=== PATIENT | female | born 1990 | race Caucasian/White ===

== ENCOUNTER 2025-02-25 12:49 | Outpatient (CLI) | payer BC, SELFPAY ==
--- NOTE | 2025-02-25 13:00 | CRLHL7_ITS ---
For Patients: As a result of the Cures Act, medical imaging exams and procedure reports are released immediately into your electronic medical record. You may view this report before your referring provider. If you have questions, please contact your health care provider. OB ULTRASOUND INDICATION: Dating. TECHNIQUE: Real time purdy scale imaging of the fetus was performed. Transabdominal imaging performed. (Transvaginal declined.) LMP: 12/31/2024. MAXIMILIANO by LMP: 10/07/2025. GA: 8 w, 0 d. Previous US: No. CRL: 1.6 cm. 8 w 0 d. MAXIMILIANO: 10/07/2025. FHR: 176 BPM. Gestational sac: 2.6 cm. Appears within normal limits. Yolk sac: 2.8 mm. Appears within normal limits. Right ovary: Within normal limits. 3.6 x 2.4 x 2.8 cm. CL. Left ovary: Within normal limits. 3.2 x 1.2 x 1.3 cm. IMPRESSION: 1. Single living anterior measuring 8 weeks 0 days with sonographic due date 10/07/2025. 2. Small subchorionic hemorrhage measures 11 x 8 x 8 mm. Aaron Lizarraga M.D. Diagnostic Radiologist [email or web address] LYSSA/Dictated by: Aaron Lizarraga MD @ 02/25/2025 6:42:00 PM (Electronically Signed)
== END 2025-02-25 12:50 | disposition home or self-care (01) ==
LOC: US 12:52
PROVIDERS: Visit Provider Midwife
DX: Z34.91 Encounter for supervision of normal pregnancy, unspecified, first trimester (principal); O20.9 Hemorrhage in early pregnancy, unspecified; Z3A.08 8 weeks gestation of pregnancy
CPT/HCPCS: 76801; 83021; 86592; 86703; 86704; 86706; 86762; 86787; 86803; 86850; 86900; 86901; 87086; 87340

== ENCOUNTER 2025-05-23 12:51 | Outpatient (CLI) | payer BC, SELFPAY ==
--- NOTE | 2025-05-23 13:00 | CRLHL7_ITS ---
For Patients: As a result of the Century Cures Act, medical imaging exams and procedure reports are released immediately into your electronic medical record. You may view this report before your referring provider. If you have questions, please contact your health care provider. INDICATION: scan. TECHNIQUE: Ultrasound pelvis transabdominal and transvaginal for better assessment or to better visualize the endometrium. Real-time sonographic images with spectral and color Doppler imaging of the ovaries were obtained. COMPARISON: 02/25/2025. FINDINGS: Sonographic imaging demonstrates a single living intrauterine gestation. Fetus demonstrates a regular cardiac rate of 130 beats per minute. Fetus has a breech orientation. The placenta lies anterior without evidence of placenta previa. Amniotic fluid appears within normal limits, with single deepest pocket of 4.1 cm. Closed cervical length is 4.7 cm. The composite ultrasound gestational age is calculated at 20 weeks 3 days with an estimated sonographic due date of 10/07/2025. The estimated weight is 353 grams which lies at the 45 %. The following biometric measurements were obtained: Biparietal diameter: 4.5cm corresponding to 19 weeks 3 days. Head circumference: 17.8cm corresponding to 20 weeks 2 days. Abdominal circumference: 15.3cm corresponding to 20 weeks 4 days. Femur length: 3.3cm corresponding to 20 weeks 3 days. On anatomic survey, there is a normal appearance of the cerebral ventricles, cisterna magna and cerebellum. No gross facial abnormality evident. Cervical, thoracic and lumbar spine as imaged appears normal. Normal-appearing four-chamber heart with normal appearing right and left ventricular outflow tracts. diaphragm, stomach, kidneys and bladder appear normal. Normal-appearing three-vessel cord and cord insertion site. Visualized four extremities appear normal. IMPRESSION: 1. Single living intrauterine with estimated age of 20 weeks 3 days. 2. No abnormality evident on anatomic survey. Dictated by Jaiden Alejandro MD @ 05/23/2025 3:47:02 PM Dictated by: Jaiden Alejandro MD @ 05/23/2025 15:47:14 (Electronically Signed)
== END 2025-05-23 12:52 | disposition home or self-care (01) ==
LOC: US 12:53
PROVIDERS: Visit Provider Advanced Practice Midwife
DX: Z34.92 Encounter for supervision of normal pregnancy, unspecified, second trimester (principal); Z3A.20 20 weeks gestation of pregnancy
CPT/HCPCS: 76805

== ENCOUNTER 2025-06-24 13:24 | Emergency (ER) | payer BC, SELFPAY ==
--- OUTSIDE RECORDS SUMMARY | 2025-06-24 13:27 | XMS_ITS | Data Portability ---
Author Organization [place] - .[facility], [facility] [place] Address [address] [place] [id number] Assessment No assessment recorded. Plan of Treatment Reminders Order DateSubmit DateProviderLast Modified ByOrganization DetailsLast Modified TimeDetailsAppointmentsNone recorded.LabO&P (ova & parasites), stool06/04/2025 06/04/20255655zwktjwtjy788[facility], [address] [place] [address], [address], [address]/08/2024 19:49:20unlisted lab - stool culture (salm, shig, campy, styl) - [facility]316[facility], [address] [place] [address], [address], 0[address]/08/2024 19:49:20C diff toxin A+B, qualitative, stooljmitchell316Cmd [facility], [address] [place] [address], [address], 8008/08/2024 19:49:21ReferralNone recorded.ProceduresNone recorded.SurgeriesNone recorded.ImagingNone recorded. Medication OrdersNone recorded. Patient TargetsNo targets recorded. Patient Instructions Encounter Date Encounter Id Patient Instructions Last Modified By Organization Details Last Modified Time 06/04/2025 [id number] A healthy lifestyle: care instructions [email or web address] Not available 06/05/2025 20:59:56 Thank you for visiting [facility]. We may be calling you to review your lab results or schedule a follow up appointment. The call will be through an automated system which asks you to pressa oconnell to speak with one of our agents. Please be on the lookout for this call and listen to the message in its entirety. You may also view your lab results using the [employer] ebony, available in the Ebony Store and Google Play. First-time ebony users will need to create an account; please note you???ll need to select a login and password for the ebony versus just using your patient portal login. Your lab results will be posted to the [employer] ebony as soon as they???re available. Need a note to excuse you from work or school? You can submit a request online at [email or web address] We will respond to your request within 2 business days. If you have any questions regarding your visit, our Aftercare department can be reached at [phone]. Our hours are 8 AM???8 PM (Mon???F ri), 9 AM???6 PM (Sat???Sun) Return in 2-3 days for reassessment. Visit the emergency room for worsening symptoms. Diarrhea Your Care Instructions Diarrhea is loose, watery stools (bowel movements). The exact causeis often hard to find. Sometimes diarrhea is your body's way of getting rid of what caused an upsetstomach. Viruses, food poisoning, and many medicines can cause diarrhea. Some people get diarrhea in response to emotional stress, anxiety, or certain foods. Almost everyone has diarrhea now and then. It usually isn't serious, and your stools will return to normal soon. The important thing to do isreplace the fluids you have lost, so you can prevent dehydration. The doctor has checked you carefully, but problems can develop later. If you notice any problems or new symptoms, get medical treatment right away. Follow-up care is a oconnell part of your treatment and safety. Be sure to make and go to all appointments, and call your doctor if you are having problems. It's also a good idea to know your test results and keep a list of the medicines you take. How can you care for yourself at home? Watch for signs of dehydration, which means your body has lost too much water. Dehydration is a seriouscondition and should be treated right away. Signs of dehydration are: Increasing thirst and dry eyes and mouth. Feeling faint or lightheaded. Darker urine, and a smaller amount of urine than normal. To prevent dehydration, drink plenty of fluids, enough so that your urine is light yellow or clear like water. Choose water and other caffeine-free clear liquids until you feel better. If you have kidney, heart, or liver disease and have to limit fluids, talk with your doctor before you increase theamount of fluids you drink. Begin eating small amounts of mild foods the next day, if you feel likeit. Try yogurt that has live cultures of Lactobacillus. (Check the label.) Avoid spicy foods, fruits , alcohol, and caffeine until 48 hours after all symptoms are gone. Avoid chewing gum that containssorbitol. Avoid dairy products (except for yogurt with Lactobacillus) while you have diarrhea and for 3 days after symptoms are gone. The doctor may recommend that you take sxyt-gip-vsgcdeo medicine,such as loperamide (Imodium), if you still have diarrhea after 6 hours. Read and follow all instructions on the label. Do not use this medicine if you have bloody diarrhea, a high fever, or other signs of serious illness. Call your doctor if you think you are having a problem with your medicine. When should you call for help? Call 911 anytime you think you may need emergency care. For example, call if: You passed out (lost consciousness). Your stools are maroon or very bloody. Call your doctor now or seek immediate medical care if: You are dizzy or lightheaded, or you feel like you may faint.Your stools are black and look like tar, or they have streaks of blood. You have new or worse bellypain. You have symptoms of dehydration, such as: Dry eyes and a dry mouth. Passing only a little dark urine. Feeling thirstier than usual. You have a new or higher fever. Watch closely for changes inyour health, and be sure to contact your doctor if: Your diarrhea is getting worse. You see pus in the diarrhea. You are not getting better after 2 days (48 hours).jqoti5Rcu wlhpepfzs70/30/2025 14:33:38 Reason for Referral None Reported. Problems Name Problem SNOMED Code Status Onset Date Resolution Date Notes Provider Name and Address Organization Details Recorded Time Gestation period, 22 weeks 47409986 Active MARCELLUS Chakraborty - .[facility]06/04/2025 14:21:55 Problem Notes None recorded. Medical Equipment None Reported. Allergies Allergen ID Allergen Name Allergen Category Reaction Reaction Severity Criticality Documentation Date Start Date Code Code System Note Provider Name and Address Organization Details Recorded Time 7444530 cefuroxime Not available diarrhea Not available low502/11/[id number] Available[facility]hena - External Data Service - prod06/04/2025 14:15:12 Vitals Date Recorded Body height Body mass index (BMI) Body weight Respiratory rate Heart rate Body temperature Oxygen saturation Systolic And Diastolic Provider Name and Address Organization Details Last Updated DateTime 172.72 cm 22.8 kg/m2 36308.8 6 g 16 /min 79 /min 98.5 [degF] 98 % 139/88 mm[Hg] Humberto GERMAIN - .[facility] 14:23:32 Social History Question Answer Notes LastModified by Organization D etails LastModified Time Tobacco Smoking Status Never Smoker MARCELLUS Chakraborty - .[facility]06/04/2025 14:22:19What Was The Date Of Your Most Recent Tobacco Screening?06/04/20258445asquzb5Fvhctxttdbf not aywbvtdvt72/29/2025Has Tobacco Cessation Counseling Been Provided?Ufinufhbt6Xobwcxwzbef not available 06/04/2025On What Date Was Tobacco Cessation Counseling Provided?06/04/2025 oljall9Thawuwqurqw not zhkgewjaw22/29/2025 Sex: Unknown Functional Status None recorded. Mental Status None recorded. Family History Relationship Description Onset Age of this Age Resolved Age Notes LastModified by Organization Details LastModified Time Father No current problems or disabilit y pildpb0Vvx cddyonarz27/29/2025 14:22:22MotherNo current problems or disability fyzbue3Mov /29/2025 14:22:22 Medical History No medical history recorded. Gynecological HistoryNo gynecological history recorded. Obstetrics History GPAL:G 0 P 0 0 0 0 Past Encounters Encounter ID Performer Location Encounter Start Date Encounter Closed Date Diagnosis/Indication Diagnosis SNOMED-CT Code Diagnosis ICD10 Code Diagnosis IMO Codes Diagnosis Note [id number] Margarita Levy MD [facility]_ [facility] [address] [place] [address] 06/04/2025 14:14:32 06/04/2025 14:26:59 Acute diarrhea 382174262 R19.7 99181 Taking oral fluids. Vital signs stable. Abdominal exam benign. Declined UA. Return in 2 days or follow up with PCP/specialist. Emergency precautions. Health Concerns Section Related Observation LastModified by Organization Detai ls LastModified Time None Recorded Concern Status LastModified by Organization Details LastModified Time None Recorded Advance Directives Directive None Recorded Payers Insurance Date Sequence Insurance Name Policy Number Policy Marsh Covered Member ID Marsh Member ID Guarantor Name 06/05/2025 1 [place] [id number] Patric Akins [id number] Rosana Lackey04080FPEH-AP: [employer] [facility] [employer] 112Dakobarak [id number] Gellerman Bray Notes Date Note Type Note Provider Name and Address Orga nization Details Recorded Time 06/04/2025 text/html Diarrhea (w/o vo miting) - cmdReported by PatientHPIFor patient presents with, patient reportsdiarrhea(without vomiting) which began 4-6 days ago. For pertinent findings, patient reports(+) recent antibiotic use (augmentin). For menstrual history, patient reportsnot menstruating (22 weeks of ). 35 yo F p/w diarrhea x 4 days. reports of having loose stool 3-4 days. pt. has concerns for c.diff.pt. states her pcp told her to test for c.diff. reports of abd cramping. states she was currently amoxicillin prior to augmentin TID x 7 days each.denies vomiting, sob, cp, fever, dysuria, uti sxsotc: n/Zee Levy MD [address] [place] [address],[address], [place], [address], [facility] - .[facility]06/05/2025 14:34:15 OBGyn Episode No OBEpisode recorded.
--- OUTSIDE RECORDS SUMMARY | 2025-06-24 13:27 | XMS_ITS | Clinical Summary ---
Author Organization [facility] Address [address] [place] [address] Care Team Providers Care Financial Project Manager Name Role Phone Pcp, No Primary Care Provider Unavailabl e Allergies Active AllergyReactionsCriticalityNoted DateCommentsCefuroximeDiarrheaLow 08/11/2018 Medications MedicationSigDispense QuantityRefillsLast FilledStart DateEnd DateStatus MULTIVITAMIN ORAL Take by mouth.Active Encounters DateTypeDepartmentCare ZbxrFvpjheadqvb53/07/2025 2:00 PM [facility] - 05/13/2025 11:59 PM CSTHospital Encounter [facility] [place] [address] [place] [address] Dilcia Nagy MD Ferebee, Ashley, PT 05/13/20255393Qjmexf00/14/2025 1:55 PM CDT - 04/19/2025 11:59 PM CDTHospital Encounter [facility] [place] [address] [place] [address] Dilcia Nagy MD Ferebee, Ashley, PT 04/19/20256769Pgiron70/30/2025 1:56 PM CDT - 04/05/2025 11:59 PM CDTHospital Encounter [facility] [place] [address] [place] [address] Dilcia Nagy MD Ferebee, Ashley, PT 04/05/20255414Puyyez75/26/2025 2:27 PM CDT - 04/01/2025 11:59 PM CDTHospital Encounter [facility] [place] [address] [place] [address] Dilcia Nagy MD Lonetti, Jennifer D, PT 04/01/2025Travelfrom Last 3 Months Immunizations ImmunizationAdministration DatesNext DueInfluenza Virus, Nrtyvaetoum32/10/2021 Tdap03/21/2021,04/24/2017,10/07/2008Varicella Jkbxatk0310/07/2008,06/27/2000 Social History Tobacco UseTypesPacks/DayYears UsedDateSmoking Tobacco: NeverSmokeless Tobacco: Never Tobacco Cessation:Counseling Given: Not Answered Alcohol UseStandard Drinks/WeekCommentsYes0 (1 standard drink = 0.6 oz pure alcohol)occPHQ-2AnswerDate RecordedPHQ-2 TOTAL LIKNN435Comments NoSex and Gender InformationValueDate RecordedSex Assigned at BirthNot on file Legal FcuHqefon59/03/2025 10:01 PM CDTGender IdentityNot on fileSexual OrientationNot on file Last Filed Vital Signs Vital SignReadingTime TakenCommentsBlood Zdvogkuv830/7004 9:20 AM CDT Gwjmj405810/14/2024 9:20 AM CDTTemperature--Respiratory Rate--Oxygen Saturation-- Inhaled Oxygen Concentration--Aqpotn79.8 kg (145 lb 1.6 oz)10/14/2024 9:20 AM ADIFugwyk148.7 cm (5' 8)10/14/2024 9:20 AM CDTBody Mass Index22.0610/14/2024 9:20 AM CDT Plan of Treatment Health MaintenanceDue DateLast DoneCommentsHIV for age 15-Hepatitis C screening for age 18-Hepatitis B series for 19+ (1 of 3 - 19+ 3- dose series)2010Pap test for age 21-HPV series for age 9-45 (1 - 3-dose SCDM series)2018COVID-19 vaccine series (2024- season) /, 07/04/2021Influenza Vaccine (#1)/MI (ht and wt on same day) for age 18+/04/2025Depression screening for age 12+/04/2025Tetanus dloweaf64/, 04/24/2017, 10/07/2008Pneumococcal series for age 6-49Aged OutNo longer eligible based on patient's age to complete this topic Insurance * Guarantor: PATRIC AKINSAccount TypeRelation to PatientDate of BirthPhoneBilling AddressPersonal/ZpdiabZaloau08/27/1996 [place] [address] Care Teams Team MemberRelationshipSpecialtyStart DateEnd Date Pcp, No PCP - General10/15/24
--- OUTSIDE RECORDS SUMMARY | 2025-06-24 13:27 | XMS_ITS | Continuity of Care Document ---
Author Organization [place] - .[facility] Address [address] [place] [address] Assessment No assessment recorded. Plan of Treatment Reminders Order DateSubmit DateProviderLast Modified ByOrganization DetailsLast Modified TimeDetailsAppointmentsNone recorded.LabO&P (ova & parasites), stool06/04/2025 06/04/20255666vhrxzkjsl996[facility], [address] [place] [address], [address], [address]/08/2024 19:49:20unlisted lab - stool culture (salm, shig, campy, styl) - [facility], [address] [place] [address], [address], [address]/08/2024 19:49:20C diff toxin A+B, qualitative, stooljmitchell316Cmd Lab, [address] [place] [address], [address], [address]/08/2024 19:49:21ReferralNone recorded.ProceduresNone recorded.SurgeriesNone recorded.ImagingNone recorded. Medication OrdersNone recorded. Patient TargetsNo targets recorded. Patient Instructions Encounter Date Encounter Id Patient Instructions Last Modified By Organization Details Last Modified Time 06/04/2025 [id number] A healthy lifestyle: care instructions [email or web address] Not available 06/05/2025 20:59:56 Thank you for visiting [facility]. We may be calling you to review your lab results or schedule a follow up appointment. The call will be through an automated system which asks you to pressa oconnell to speak with one of our agents. Please be on the lookout for this call and listen to the message in its entirety. You may also view your lab results using the [employer] ebony, available in the Ebony Store and Google Play. First-time ebony users will need to create an account; please note you???ll need to select a login and password for the ebony versus just using your patient portal login. Your lab results will be posted to the [employer] ebony as soon as they???re available. Need a note to excuse you from work or school? You can submit a request online at [email or web address] We will respond to your request within 2 business days. If you have any questions regarding your visit, our Aftercare department can be reached at [phone]. Our hours are 8 AM???8 PM (Mon???F [...] The doctor may recommend that you take tqmp-yry-vfhuscl medicine,such as loperamide (Imodium), if you still [...] or higher fever. Watch closely for changes in your health, and be sure to contact your doctor if: Your diarrhea is getting worse. You see pus inthe diarrhea. You are not getting better after 2 days (48 hours).zfrot6Meo hbiyrdtuh28/30/2025 14:33:38 Reason for Referral None Reported. Problems Name Problem SNOMED Code Status Onset Date Resolution Date Notes Provider Name and Address Organization Details Recorded Time Gestation period, 22 weeks 52349421 Active MARCELLUS Chakraborty - .[facility]06/04/2025 14:21:55 Problem Notes None recorded. Medical Equipment None Reported. Allergies Allergen ID Allergen Name Allergen Category Reaction Reaction Severity Criticality Documentation Date Start Date Code Code System Note Provider Name and Address Organization Details Recorded Time 7655352 cefuroxime Not available diarrhea Not available low502/11/[id number] Available[facility] - External Data Service - prod06/04/2025 14:15:12 Vitals Date Recorded Body height Body mass index (BMI) Body weight Respiratory rate Heart rate Body temperature Oxygen saturation Systolic And Diastolic Provider Name and Address Organization Details Last Updated DateTime 172.72 cm 22.8 kg/m2 93867.8 6 g 16 /min 79 /min 98.5 [degF] 98 % 139/88 mm[Hg] Humberto GERMAIN - .[facility] 14:23:32 Social History Question Answer Notes LastModified by Organization D etails LastModified Time Tobacco Smoking Status Never Smoker MARCELLUS Chakraborty - .[facility]06/04/2025 14:22:19What Was The Date Of Your Most Recent Tobacco Screening?06/04/20252133mbsbdb6Wmpgvpunwda not /29/2025Has Tobacco Cessation Counseling Been Provided?Tioeedhus0Hlhoxfdnamy not available 06/04/2025On What Date Was Tobacco Cessation Counseling Provided?06/04/2025 rikvbp0Zwdbumxtkxe not nktjurqsx77/29/2025 Sex: Unknown Functional Status None recorded. Mental Status None recorded. Family History Relationship Description Onset Age of this Age Resolved Age Notes LastModified by Organization Details LastModified Time Father No current problems or disabilit y baixzq3Nyj yvezqagai50/29/2025 14:22:22MotherNo current problems or disability vpeaxg6Tql kqmwtnzad83/29/2025 14:22:22 Medical History No medical history recorded. Gynecological HistoryNo gynecological history recorded. Obstetrics History GPAL:G 0 P 0 0 0 0 Past Encounters Encounter ID Performer Location Encounter Start Date Encounter Closed Date Diagnosis/Indication Diagnosis SNOMED-CT Code Diagnosis ICD10 Code Diagnosis IMO Codes Diagnosis Note [id number] Margarita Levy MD [facility] [address] [address] [place] [address] 06/04/2025 14:14:32 06/04/2025 14:26:59 Acute diarrhea 958232225 R19.7 22534 Taking oral fluids. Vital signs stable. Abdominal exam benign. Declined UA. Return in 2 days or follow up with PCP/specialist. Emergency precautions. Health Concerns Section Related Observation LastModified by Organization Detai ls LastModified Time None Recorded Concern Status LastModified by Organization Details LastModified Time None Recorded Payers Encounter Date Sequence Insurance Name Policy Number Policy Marsh Covered Member ID Marsh Member ID Guarantor Name 06/04/2025 1 [facility] Patric Akins [id number] Rosana Akins Notes Date Note Type Note Provider Name and Address Orga nijasper Details Recorded Time 06/04/2025 text/html Diarrhea (w/o [...] fever, dysuria, uti sxsotc: n/Zee Levy MD [address] [place] [address],[address], [place], [address], [place] - .[facility]06/05/2025 14:34:15 OBGyn Episode No OBEpisode recorded.
[2025-06-24 13:33] VITALS: BP 154/72; PULSE 113; RESP 18; TEMP 36.6; O2SAT 98; BMI 23.5
--- NOTE | 2025-06-24 13:54 | CRLHL7_ITS ---
For Patients: As a result of the Century Cures Act, medical imaging exams and procedure reports are released immediately into your electronic medical record. You may view this report before your referring provider. If you have questions, please contact your health care provider. INDICATION: Bilateral paresthesia, . (Sic) COMPARISON: None available. TECHNIQUE: Static and compression grayscale and spectral (including color) Doppler ultrasound of the bilateral lower extremities. FINDINGS: Deep veins: The imaged bilateral common femoral, deep femoral, superficial femoral, popliteal, posterior tibial, and peroneal veins are patent and free of clot. Superficial veins: The imaged bilateral great saphenous veins are patent and free of clot. Extravascular findings: No significant incidental findings. IMPRESSION: No evidence of DVT in either lower extremity. Dictated by Servando Sapp MD @ 06/24/2025 3:26:58 PM (Electronically Signed)
[2025-06-24 14:10] LABS: Hematocrit* 37.5 % (33.0-51.0); Hemoglobin* 12.1 gm/dL (12.0-16.0); Immature Granulocytes Pct Auto 0.3 %; Mean Corpuscular HGB Conc 32 gm/dL (32-36); Mean Corpuscular Hemoglobin 29 pg (26-34); Mean Corpuscular Volume 90 fL (80-100); RDW Coefficient of Variation % 12.7 % (11.5-15.5); Red Blood Count* 4.19 m/uL (4.00-5.20); White Blood Count* 14.78 K/uL (4.50-11.00)
--- NOTE | 2025-06-24 14:13 | PC.NURSE ---
doppler tones performed, HR 145-162
[2025-06-24 14:17] LABS: Immature Granulocytes Abs Auto 0.00 K/uL (0.00-0.30); Lymphocytes Absolute Auto 1.20 K/uL (0.90-2.90); Slide Review Reflex No
--- OUTSIDE RECORDS SUMMARY | 2025-06-24 14:20 | XMS_ITS ---
Author Organization [facility] Source Produ ction (ClinicalSummary Clone) Address Unknown Care Team Providers Care Veterinary Medicine Scientist Name Role Phone Unavailable Primary Care Physician Unavailab le Results * [UNITY] CARRIER SCREEN Performed by: [email or web address] Component Value Range Date Sickle Cell Disease/Beta-Thalassemia/Hemoglobino pathies carrier screen NEGATIVE 04/12/2025 09:41 pm UTCAlpha-Thalassemia carrier [id number]/07/2025 09:41 pm UTCCystic Fibrosis carrier vyigfwFOBREMYQ57/07/2025 09:41 pm UTCSpinal Muscular Atrophy carrier screenNEGATIVE 2 SMN1 copies, SNP not [id number]/12/2025 09:41 pm UTCFor detailed report, see PDFSee PDF04/12/2025 09:41 pm UTC 04/12/2025 09:41 pm UTC Social History Observation Value Start Date End Date
--- OUTSIDE RECORDS SUMMARY | 2025-06-24 14:20 | XMS_ITS ---
Author Organization [facility] Source Produ ction (ClinicalSummary Clone) Address Unknown Care Team Providers Care Manager Industrial Name Role Phone Unavailable Primary Care Physician Unavailab le Results * [UNITY] ANEUPLOIDY NIPT Performed by: [employer] Component Value Range Date Fraction 3.4% 04/05/2025 08:51 pm UTCSex Chromosome AneuploidyNOT GWZQBTBI88/30/2025 08:51 pm UTCMonosomy XLOW RISK <1 in , 08:51 pm UTCTrisomy 13LOW RISK <1 in , 08:51 pm UTCTrisomy 18LOW RISK <1 in , 08:51 pm UTCTrisomy 21LOW RISK <1 in , 08:51 pm UTCFetal SexMALE 04/05/2025 08:51 pm UTCPregnancy VhidvhlveJUCYRNJCP39/30/2025 08:51 pm UTCFor detailed report, see PDFSee PDF04/05/2025 08:51 pm UTC04/05/2025 08:51 pm UTC Social History Observation Value Start Date End Date
[2025-06-24 14:28] LABS: Albumin* 4.1 g/dL (3.3-5.0); Chloride* 103 mmol/L (96-114)
[2025-06-24 14:29] LABS: Potassium* 3.7 mmol/L (3.6-5.1); Sodium* 132 mmol/L (135-149)
[2025-06-24 14:31] LABS: Blood Urea Nitrogen* 6 mg/dL (5-24); Creatinine* 0.6 mg/dL (0.5-1.5); Est. Creatinine Clearance* 133.27; Estimated Glomerular Filt Rate 121 ml/min
[2025-06-24 14:32] LABS: Alanine Aminotransferase* 14 U/L (4-35); Alkaline Phosphatase* 78 U/L (40-150); Anion Gap 9 mEq/L (7-15); Aspartate Amino Transferase* 21 U/L (12-35); Bilirubin Total* 0.2 mg/dL (0.1-1.5); Calcium* 8.9 mg/dL (8.4-10.6); Carbon Dioxide* 20 mmol/L (20-32); Creatine Kinase* 37 U/L (41-117); Glucose* 88 mg/dL (60-115); Total Protein* 7.2 g/dL (6.0-8.3)
--- NOTE | 2025-06-24 14:37 | ED_ITS ---
HPI - General Adult General Chief complaint: Unspecified Complaint, Adult Stated complaint: 25 weeks / neuro symptoms Time Seen by Provider: 06/24/25 13:39 Source: patient Mode of arrival: ambulatory Limitations: no limitations History of Present Illness HPI narrative: 35-year-old female 25 weeks presenting for evaluation of fluctuating and migrating neurological changes. Describes a sensation of paresthesias in the right hand and forearm area that lasted approximately 10 minutes starting about an hour ago. This resolved within 10 minutes and then moved to the right tongue, lasting 5 minutes then resolved and moved to the right lip lasting 5 minutes. Then symptoms moved to the left arm and hand, lasting about 8 minutes, all resolving and not accompanied by any neurological changes. the patient then noted bilateral tingling to the tops of her thighs, equal and symmetric lasting probably about 10-15 minutes, resolved and then bilateral tingling to the back of both calves lasting about 15-20 minutes, resolving completely. Patient had no motor weakness at any time. She has been mildly nauseated but has attributed that to . She has had no fevers. There has been no stool or urinary changes. No trauma or injury. She has had no difficulty speaking, no vision changes, no facial or head changes. She does have a mild headache. She has no history of bleeding or blood clotting disorders, takes no anticoagulation. Has not noticed movement today and has some mild bilateral lower abdominal cramping. No bleeding or leakage of fluid. In her household, her daughter has had recent cough and congestion symptoms but no high fever. Patient has had no prior similar symptoms to what she is describing today. She called the clinic and they advised her to be seen in the emergency room. She has had no other changes to her routine recently, took some Tylenol last night for some mild general aches. No dietary changes, no pertinent travel, no recent vaccines. No personal history of prior stroke or other similar neurological changes. Ob course has been uncomplicated thus far in the . Did have some nausea and vomiting issues, medications reviewed. Last will be no reviewed. Allergy to cefdinir. ROS is notable for the wondering paresthesias as stated above, currently asymptomatic. Otherwise denies times 12 systems. Related Data Home Medications ?Medication ?Instructions ?Recorded ?Confirmed Saccharomyces boulardii 250 mg 250 mg PO BID 02/25/25 06/24/25 capsule (Daily Probiotic (S. boulardii)) cod liver oil 1 cap PO ONCE 02/25/2506/24 vitamin no.49-iron tab PO 02/25/25 06/22/25 fum-folic acid 6.75 mg iron-200 mcg tablet (Mini ) magnesium 200 mg tablet 200 mg PO QDAY 04/27/2506/06 ascorbate calcium (vitamin C) 500 1 g PO Q6H 05/23/25 06/24/25 mg tablet Previous Rx's ?Medication ?Instructions ?Recorded metoclopramide HCl 10 mg tablet 10 mg PO Q6H PRN nause a and 04/27/25 (Reglan) vomiting #60 tabs ondansetron 4 mg disintegrating 4 mg PO Q8H PRN nausea and 04/27/25 tablet vomiting #30 tabs Allergies Allergy/AdvReac Type Severity Reaction Status Date / Time cefdinir Allergy Unknown Verified 06/22/25 07:54 PFSH PFSH Medical History Forceps delivery ?O75.9 - Complication of labor and delivery, unspecified (ICD-10) Social History Smoking Status: Never smoker How often do you have a drink containing alcohol: never AUDIT-C Alcohol total score: 0 Non-prescribed substance use: denies use Exam Const: Vital Signs, click to edit/add: Vital Signs - 24 hr 06/24/25 13:33 06/24/25 15:25 Temperature 98 F Pulse Rate [Pulse Oximeter] 113 H 75 Respiratory Rate 18 Blood Pressure [Ri ght Upper Arm] 154/72 H 101/58 L Pulse Oximetry 98 98 Oxygen Delivery Me thod Room Air Room Air Documenting provider has reviewed patient's vital signs: yes Common normals: no apparent distress and alert General appearance: well kempt Other: Anxious but redirectable. Well nourished, well hydrated. HENMT: Common normals: normocephalic and moist oral mucous membranes Head and scalp: normocephalic Face and sinus: normal facial exam Eye: Common normals: PERRL and conjunctivae normal General eye: normal appearance of both eyes Conjunctiva: conjunctiva(e) normal Pupil: PERRL Neck & C-Spine: General: normal visual inspection Resp: Common normals: normal respiratory effort, no use of accessory muscles and clear to auscultation bilaterally Effort & inspection: able to speak in complete sentences Auscultation: clear to auscultation bilaterally Cardio: Common normals: regular rate, regular rhythm, S1 normal heart sound, S2 normal heart sound and no murmurs Rate: regular rate Rhythm: regular rhythm Heart sounds: S1 normal and S2 normal GI: Common normals: Normal to inspection, nondistended, normoactive bowel sounds present, soft to palpation, non-tender and no hepatosplenomegaly Palpation: soft and no hepatosplenomegaly Other: Fundal height consistent with gestational age reported Extremity: Common normals: normal to inspection and normal capillary refill General: normal exam except as noted Neuro: Common normals: CN's II-XII intact bilaterally, moves all extremities, no focal motor deficits and no sensory deficits noted Sensorium/orientation: alert Cranial nerves: CN normal except as noted Speech: speech normal Gait (neuro): normal gait Motor exam: strength 5/5 throughout Psych: Appearance: well kempt Attitude: engaged Activity/motor behavior: appropriate eye contact Insight: insight good Judgement: judgment good Skin: Common normals: no rashes or lesions noted General skin exam: no rashes or lesions noted Course Course ED Course: 35-year-old female with wondering paresthesias. Presentation is not overly suspicious for a focal stroke due to the bilateral symptoms, wandering and migratory nature. She does not appear to have any focal neurological changes are persistent deficits at this time which is also somewhat reassuring. Differential diagnosis also includes myalgias, electrolyte abnormality, dehydration, viral illness, other benign pathology, but also includes more worrisome things like thromboembolism. Will obtain basic labs, viral swabs, venous Doppler ultrasounds of the lower extremities. Continue to monitor, repeat neuro exam and await lab findings. heart tones reassuring, 145 to 160s. Reevaluation(s) Time of Reevaluation #1: 16:07 Reevaluation #1: Patient remains asymptomatic. Blood pressure has normalized without intervention. Repeat neurological exam showing moving all 4 extremities normally. Observed ambulating without difficulty, speech remaining normal. We discussed the findings today. I am not 100% sure what caused her symptoms but I am not appreciating any dangerous neurological pathology. There are no signs of DVT that would suggest thromboembolism. I do not think a head CT is a good idea as the risk of radiation seems to outweigh the benefit today. Reviewed this rationale with patient. Blood work does show some very mild dehydration and ketones in the urine. I suspect that she probably does have a viral illness and this certainly could be contributing as well. We also discussed potentially migraine pathology. There are no signs of obvious seizure or major electrolyte abnormality. I have recommended rest for the next couple of days, Tylenol as needed for the headache and muscle aches. We reviewed focal neurological changes that would warrant ED re-evaluation. I would recommend an outpatient MRI of the brain if she continues to have similar spells. written instructions provided, all questions answered. Vital Signs Vital signs: Initial Vital Signs Temperature 98 F 06/24/25 13:33 Temperature Source Temporal Artery Scan 06/24/25 13:33 Pulse Rate 113 H 06/24/25 13:33 Respiratory Rate 18 06/24/25 13:33 Blood Pressure 154/72 H 06/24/25 13:33 Blood Pressure Mean 99 06/24/25 13:33 Blood Pressure Position Sitting 06/24/25 13:33 Pulse Oximetry 98 06/24/25 13:33 Oxygen Delivery Method Room Air 06/24/25 13:33 Vital Signs Temperature 98 F 06/24/25 13:33 Pulse Rate 113 H 06/24/25 13:33 Respiratory Rate 18 06/24/25 13:33 Blood Pressure 154/72 H 06/24/25 13:33 Pulse Oximetry 98 06/24/25 13:33 Oxygen Delivery Method Room Air 06/24/25 13:33 Temperature 98 F 06/24/25 13:33 Pulse Rate 75 06/24/25 15:25 Respiratory Rate 18 06/24/25 13:33 Blood Pressure 101/58 L 06/24/25 15:25 Pulse Oximetry 98 06/24/25 15:25 Oxygen Delivery Method Room Air 06/24/25 15:25 Medical Decision Making Lab Data Lab results reviewed: Yes I reviewed the patient's lab results Lab results narrative: mild leukocytosis, labs otherwise reassuring. Labs: Lab Results 06/24/25 06/24/25 06/24/25 Range/Units 13:56 14:00 15:40 WBC 14.78 H (4.50-11.00) K/uL RBC 4.19 (4.00-5.20) m/uL Hgb 12.1 (12.0-16.0) gm/dL Hct 37.5 (33.0-51.0) % MCV 90 (80-100) fL MCH 29 (26-34) pg MCHC 32 (32-36) gm/dL RDW Coeff of Alise 12.7 (11.5-15.5) % Plt Count 205 (140-440) K/uL Neut % (Auto) 86.7 H (42.0-72.0) % Lymph % (Auto) 7.8 L (20-44) % [place] % (Auto) 4.4 (0.0-11.0) % Eos % (Auto) 0.7 (0.0-7.0) % Baso % (Auto) 0.1 (0.0-3.0) % Neut # (Auto) 12.80 H (1.7-7.0) K/uL Lymph # (Auto) 1.20 (0.90-2.90) K/uL [place] # (Auto) 0.70 (0.00-0.90) K/UL Eos # (Auto) 0.10 (0.00-0.50) K/uL Baso # (Auto) 0.00 (0.00-0.30) K/uL Abs Immat Gran (auto) 0.00 (0.00-0.30) K/uL Imm/Tot Granulo (auto) 0.3 % Sodium 132 L (135-149) mmol/L Potassium 3.7 (3.6-5.1) mmol/L Chloride 103 (96-114) mmol/L Carbon Dioxide 20 (20-32) mmol/L Anion Gap 9 (7-15) mEq/L BUN 6 (5-24) mg/dL Creatinine 0.6 (0.5-1.5) mg/dL Estimated Creat Clear 133.27 Estimated GFR 121 ml/min Glucose 88 (60-115) mg/dL Calcium 8.9 (8.4-10.6) mg/dL Total Bilirubin 0.2 (0.1-1.5) mg/dL AST 21 (12-35) U/L ALT 14 (4-35) U/L Alkaline Phosphatase 78 (40-150) U/L Total Creatine Kinase 37 L (41-117) U/L C-Reactive Protein 2.1 H (0.5-1.0) mg/dL Total Protein 7.2 (6.0-8.3) g/dL Albumin 4.1 (3.3-5.0) g/dL Urine Color Yellow (Yellow) Urine Appearance Clear (Clear) Urine pH 6.0 (5.0-8.5) Ur Specific [place] 1.010 (1.000-1.030) Urine Protein Negative (Negative) Urine Glucose (UA) Negative (Negative) Urine Ketones 2+ A (Negative) Urine Blood Negative (Negative) Urine Nitrite Negative (Negative) Urine Bilirubin Negative (Negative) Urine Urobilinogen 0.2 (0.2-1.0) Ur Leukocyte Esterase Negative (Negative) SARS-CoV-2 (PCR) Negative SARS-CoV-2 (Negative) Influenza Type A (PCR) Negative PCR FLU A (Negative) Influenza Type B (PCR) Negative PCR FLU B (Negative) RSV (PCR) Negative PCR RSV (Negative) Imaging Data Venous Doppler ultrasound both legs: Attestation: I have reviewed the pertinent imaging results. My impression: no DVT Radiologist's impression: IMPRESSION: No evidence of DVT in either lower extremity. Dictated by Servando Sapp MD @ 06/24/2025 3:26:58 PM Discharge Plan Discharge Clinical Impression: Paresthesia Patient Disposition: Home w/ Parent or Adult Condition: Improved Instructions: Paresthesia (ED) Additional Instructions: as we discussed, I do not have a clear explanation for why these symptoms happened today. Most of the time, these are from a migraine type phenomenon, more common in . They can also be induced by a virus. The fact that both sides of the body are affected and the symptoms migrate around tends to point towards more friendly pathology. The fact that there are no motor w eakness is and the symptoms only last a few minutes before migrating to a new area point away from a stroke. The fact that multiple parts of the brain and opposite sides of the body are affected point away from a seizure. I would recommend that we keep an eye on your symptoms and order an outpatient MRI if you continue to have spells. This would need to be arranged by your primary OB provider. For now, I want you to drink lots of fluids, rest for the next couple of days and keep a very close symptom diary of any of the changes in numbness, sensation or specially any weakness changes. If you have motor weakness or persistent symptoms, please return to the emergency room. Please make a follow- up appointment with your primary OB provider within the next 2 weeks to discuss the findings today and determine if further workup or specialty consult would be warranted. Hopefully, you have no further similar spells and that would point towards this being related to a viral illness. Activity Level: Activity as Tolerated Discharge Diet: Regular Prescriptions: No Action magnesium 200 mg tablet 200 mg PO QDAY ondansetron 4 mg tablet,disintegrating 4 mg PO Q8H PRN (Reason: nausea and vomiting) Qty: 30 2RF metoclopramide HCl [Reglan] 10 mg tablet 10 mg PO Q6H PRN (Reason: nausea and vomiting) Qty: 60 2RF Mini 6.75 mg iron- 200 mcg tablet PO cod liver oil Capsule 1 cap PO ONCE Saccharomyces boulardii [Daily Probiotic (S. boulardii)] 250 mg capsule 250 mg PO BID ascorbate calcium (vitamin C) 500 mg tablet 1 g PO Q6H Follow Up/Referrals: Provider,Not a Local [Primary Care Provider, Family Practice] Stand Alone Forms: [employer] Info Instructions
[2025-06-24 14:55] LABS: PCR FLU A Negative PCR FLU A (Negative); PCR FLU B Negative PCR FLU B (Negative); PCR RSV Negative PCR RSV (Negative); SARS PCR* Negative SARS-CoV-2 (Negative)
[2025-06-24 15:25] VITALS: BP 101/58; PULSE 75; O2SAT 98
[2025-06-24 15:49] LABS: Appearance Urine Clear (Clear)
== END 2025-06-24 16:15 | disposition home or self-care (01) ==
PROVIDERS: Emergency Provider Family Medicine
DX: O26.892 Other specified pregnancy related conditions, second trimester (principal); R20.2 Paresthesia of skin; Z3A.25 25 weeks gestation of pregnancy
CPT/HCPCS: 36415; 80053; 81003; 82550; 85025; 86140; 87631; 93005; 93970; 99284; 99285